=== PATIENT | female | born 1990 | race Two or more races ===

== ENCOUNTER 2018-06-18 08:43 | Emergency (ER) | payer SELFPAY ==
[~2018-06-18] VITALS: Ht 154.9 cm; Wt 85.0 kg
[2018-06-18 08:47] VITALS: BP 126/81
--- NOTE | 2018-06-18 09:38 | NUR ---
D/C home with rx & instructions about L otitis media. Verb. understanding, work note provided.
== END 2018-06-18 09:39 | disposition home or self-care (01) ==
LOC: ED 09:27
DX: H66.002 Acute suppurative otitis media without spontaneous rupture of ear drum, left ear (principal)
CPT/HCPCS: 99283